=== PATIENT | male | born 1995 | race Caucasian/White ===

== ENCOUNTER 2019-04-26 21:34 | Emergency (ER) | payer OTHER ==
[~2019-04-26] VITALS: Ht 188 cm; Wt 99.8 kg
[2019-04-26] MEDS ORDERED: TETANUS,DIPTH,PERTUSS P/F (BOOSTRIX) 0.5 ML VIAL IM ONE ×2 (21:35→22:30)
[2019-04-26] MEDS ORDERED: LIDOCAINE 1% INJ 20 ML 20 ML VIAL ONE (21:39)
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
[2019-04-26] MEDS ORDERED: LIDOCAINE 1% INJ 20 ML 20 ML VIAL INJ ONE (22:00)
[2019-04-26] MEDS ORDERED: AMOX500C2 PO (22:53)
[2019-04-26 23:01] VITALS: BP 117/73
--- NOTE | 2019-04-27 05:49 | Diagnostic Imaging Report ---
EXAMINATION: Left elbow at 1014 hours. INDICATION: Injury with pain. 3 views were obtained. There are no prior studies available for comparison. FINDINGS: There is no fracture, dislocation or acute bony abnormality evident. The elbow joint is fairly well-maintained. There is a 9 MM sclerotic lesion within the radial head. This is of uncertain etiology but has a generally benign appearance. The posterior fat-pad is not elevated. There does appear to be a soft tissue injury along the medial aspect of the elbow joint. There is no radiopaque foreign body identified in this area, however. IMPRESSION: There is evidence of a soft tissue injury along the medial aspect of the elbow joint but there is no sign of an acute bony abnormality. Dictated by: Dictated on workstation # [id number]
== END 2019-04-26 23:01 | disposition home or self-care (01) ==
LOC: ER 21:36
DX: S51.012A Laceration without foreign body of left elbow, initial encounter (principal); V19.9XXA Pedal cyclist (driver) (passenger) injured in unspecified traffic accident, initial encounter
CPT/HCPCS: 73080; 90471; 90715